=== PATIENT | female | born 1990 | race Hispanic/Latino ===

== ENCOUNTER 2018-05-24 11:10 | Emergency (ER) | payer OTHER ==
[2018-05-24 11:19] VITALS: RESP 18
[2018-05-24] MEDS ORDERED: Tdap Vaccine 0.5 ml Vial (10-64 yrs) IM ONE ×2 (11:38→11:49)
[2018-05-24] MEDS ORDERED: Bacitracin OINT 15GM TOP STA (11:40)
[2018-05-24] MEDS ORDERED: Bacitracin 500 Units/gm Oint Foilpak UD TOP STA (11:42)
[2018-05-24] MEDS ORDERED: Bacitracin 500 Units/gm Oint Foilpak UD ONE (11:49)
--- NOTE | 2018-05-24 11:56 | ED PDOC ---
Upper Extremity Pain/Injury Time Seen by Provider: 05/24/18 11:34 Chief Complaint (Nursing): Abnormal Skin Integrity History Per: Patient Additional Complaint(s): Pt. 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 Denies numbness, tingling, FB sensation, other injury. Past Medical History Reviewed: Historical Data, Nursing Documentation, Vital Signs Vital Signs: Last Vital Signs Temp 97 F L 05/24/18 11:17 Pulse 112 H 05/24/18 11:17 Resp 18 05/24/18 11:17 BP 146/93 H 05/24/18 11:17 Pulse Ox 97 05/24/18 11:17 - Family History Family History: States: No Known Family Hx - Immunization History Hx Tetanus Toxoid Vaccination: No - Allergies Allergies/Adverse Reactions: Allergies Allergy/AdvReac Type Severity Reaction Status Date / Time No Known Allergies Allergy Verified 05/24/18 11:19 Review of Systems ROS Statement: Except As Marked, All Systems Reviewed And Found Negative Physical Exam - Physical Exam Appears: Positive for: Well, Non-toxic, No Acute Distress Skin: Positive for: Normal Color, Warm. Negative for: Rash Eye Exam: Positive for: Normal appearance Extremity: Positive for: Other (L 4th digit with small circular superficial avulsion wound without active bleeding; L 4th finger nail intact and cap refill < 2 seconds) Neurologic/Psych: Positive for: Alert, Oriented (x3) - ECG O2 Sat by Pulse Oximetry: 97 - Progress ED Course And Treament: Wound irrigated and cleansed. Bacitracin ointment applied. DSD applied. Tetanus prophylaxis administered. Disposition - Clinical Impression Clinical Impression: Finger abrasion - Patient ED Disposition Is Patient to be Admitted: No - Disposition Referrals: [facility] [Outside] Disposition: Routine/Home Disposition Time: 11:41 Condition: STABLE Additional Instructions: JAYDEN GRAVES, thank you for letting us take care of you today. Your provider was Lila Cardoza MD and you were treated for LACERATION ON FINGER. The emergency medical care you received today was directed at your acute symptoms. If you were prescribed any medication, please fill it and take as directed. It may take several days for your symptoms to resolve. Return to the Emergency Department if your symptoms worsen, do not improve, or if you have any other problems. Please contact your doctor or call one of the physicians/clinics you have been referred to that are listed on the Patient Visit Information form that is included in your discharge packet. Bring any paperwork you were given at [facility] with you along with any medications you are taking to your follow up visit. Our treatment cannot replace ongoing medical care by a primary care provider outside of the emergency department. Thank you for allowing the [facility] team to be part of your care today. If you had an X-Ray or CT scan: A Radiologist will review the ED reading if any change in treatment is needed we will contact you. If you had a blood, urine, or wound culture: It will take several days for the results, if any change in treatment is needed we will contact you. If you had an STI test: It will take 48 hours for the results. Please call after 1 week if you have not heard back. Instructions: Skin Abrasions (DC) Forms: [employer] (Cameroonian) Print Language: FRISIAN
[2018-05-24 12:04] VITALS: BP 128/56; PULSE 78; TEMP 97.9
[2018-05-24 16:58] VITALS: O2SAT 97
== END 2018-05-24 12:23 | disposition home or self-care (01) ==
LOC: H.ER 11:10
DX: S60.415A Abrasion of left ring finger, initial encounter (principal); W26.0XXA Contact with knife, initial encounter; Y92.000 Kitchen of unspecified non-institutional (private) residence as the place of occurrence of the external cause